=== PATIENT | male | born 1980 | race Hispanic/Latino ===

== ENCOUNTER 2022-09-02 16:51 | Emergency (ER) | payer BC ==
[~2022-09-02] VITALS: Ht 170.2 cm; Wt 90.0 kg
[~2022-09-02 16:51] MED LIST: TYLENOL # 31 TAB OR
[2022-09-02 17:16] VITALS: BP 132/76
== END 2022-09-02 19:05 | disposition home or self-care (01) | DRG 605 ==
LOC: ED 16:51
DX: S61.411A Laceration without foreign body of right hand, initial encounter (principal); W45.8XXA Other foreign body or object entering through skin, initial encounter